=== PATIENT | female | born 1990 | race Caucasian/White ===

== ENCOUNTER → 2018-01-30 | Outpatient (CLI) | payer OTHER ==
--- NOTE | 2018-01-30 09:47 | US ---
EXAMINATION TYPE: US abdomen complete DATE OF EXAM: 01/30/2018 COMPARISON: None CLINICAL HISTORY: 27-year-old female R10.31 Right lower quad abdominal pain. Right pelvic pain x coup le months TECHNIQUE: Multiple sonographic images of the abdomen are obtained. FINDINGS: EXAM MEASUREMENTS: Liver Length: 16.3 cm Gallbladder Wall: 0.2 cm CBD: 0.3 cm Spleen: 10.9 cm Right Kidney: 10.5 x 4.8 x 5.0 cm Left Kidney: 10.1 x 5.4 x 4.7 cm Pancreas: wnl Liver: Normal homogeneous appearance without focal lesion Gallbladder: wnl Evidence for sonographic Cooney's sign: no CBD: wnl Spleen: wnl Right Kidney: No hydronephrosis Left Kidney: No hydronephrosis Upper IVC: wnl Abd Aorta: wnl IMPRESSION: Unremarkable sonographic examination of the abdomen.
--- NOTE | 2018-01-30 12:04 | US ---
EXAMINATION TYPE: US pelvic complete DATE OF EXAM: 01/30/2018 COMPARISON: CT 2018 CLINICAL HISTORY: R10.31 Right lower quad abdominal pain. Right pelvic pain x couple months, irregula r cycles, 3, para 3 TECHNIQUE: . Transabdominal sonographic images of the pelvis were acquired. Date of LMP: 01/22/2018 EXAM MEASUREMENTS: Uterus: 8.4 x 3.1 x 3.6 cm Endometrial Stripe: 0.4 cm Right Ovary: 3.2 x 2.4 x 2.3 cm Left Ovary: 3.4 x 2.1 x 1.9 cm 1. Uterus: anteverted, no discrete mass 2. Endometrium: wnl 3. Right Ovary: follicles 4. Left Ovary: follicles 5. Bilateral Adnexa: wnl 6. Posterior cul-de-sac: wnl IMPRESSION: No significant abnormality is evident.
== END | disposition home or self-care (01) ==
LOC: RADUSWWP 08:24
PROVIDERS: ATTEND Family Medicine
DX: R10.31 Right lower quadrant pain (principal)
CPT/HCPCS: 76700; 76856